=== PATIENT | female | born 1985 | race American Indian/Alaskan Native ===

== ENCOUNTER 2017-04-20 11:28 | Emergency (ER) | payer OTHER ==
[2017-04-20 11:42] VITALS: BP 133/87
[2017-04-20] MEDS ORDERED: MOTRIN ONE (12:35)
[2017-04-20] MEDS ORDERED: TYLENOL ONE (12:35)
[2017-04-20] MEDS ORDERED: TYLENOL PO ONE (12:36)
[2017-04-20] MEDS ORDERED: MOTRIN PO ONE (12:36)
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
== END 2017-04-20 13:30 | disposition home or self-care (01) ==
LOC: ED 11:28
DX: T74.91XA Unspecified adult maltreatment, confirmed, initial encounter (principal); S30.871A Other superficial bite of abdominal wall, initial encounter; M25.511 Pain in right shoulder; R51 Headache; I10 Essential (primary) hypertension; F17.200 Nicotine dependence, unspecified, uncomplicated; Y08.89XA Assault by other specified means, initial encounter; Y93.89 Activity, other specified; Y99.8 Other external cause status; Y92.89 Other specified places as the place of occurrence of the external cause
CPT/HCPCS: 99282